=== PATIENT | female | born 1975 | race Caucasian/White ===

== ENCOUNTER 2017-01-12 19:18 | Emergency (ER) | payer OTHER ==
[~2017-01-12] VITALS: Ht 165.1 cm; Wt 112.5 kg
[2017-01-12 19:22] VITALS: TEMP 36.5; Ht 165.1 cm; Wt 112.5 kg
[2017-01-12] MEDS ORDERED: PRT/20 PO (19:49)
[2017-01-12] MEDS ORDERED: CEPHALEXIN 500MG HOME PACK 1 EA BTL PO ONE (20:00)
[2017-01-12] MEDS ORDERED: NORCO 5/325MG HOME PACK PO ONE (20:00)
[2017-01-12] MEDS ORDERED: CEPH500C PO (20:04)
--- NOTE | 2017-01-12 20:05 | EMERGENCY ROOM VISIT NOTE ---
History First contact with patient: 19:32 Chief Complaint: BITE Stated Complaint: LF ARM ITCHES/BURN W/BLISTERS History of Present Illness The patient is a 41 year old female who presents to the Emergency Room with complaints of a spider bite to her left arm. The patient states that a brown spider bit her in the left arm yesterday. She states that the area is very itchy and painful. She reports swelling and redness. She rates her discomfort a 9/10. She denies any fevers/chills or difficulty moving the arm. Review of Systems A complete 10 point review of systems was reviewed with the patient with pertinent positives and negatives as per history of present illness. All else were negative. Current/Historical Medications Scheduled Cephalexin Monohydrate (Keflex), 500 MG PO QID Pantoprazole (Protonix), 20 MG PO DAILY Physical Exam Vital Signs Date Time Temp Pulse Resp B/P (MAP) Pulse Ox O2 Delivery O2 Flow Rate FiO2 01/12/17 20:13 72 16 133/80 96 01/12/17 19:22 36.5 80 18 133/80 96 Room Air Physical Exam VITALS: Vitals are noted on the nurse's note and reviewed by myself. Vital signs stable. GENERAL: This is a 41-year-old female, in no acute distress, nondiaphoretic, well-developed well-nourished. SKIN: There are 2 small erythematous puncture wounds to the left upper arm. There is surrounding erythema and warmth with a diameter of approximately 4 cm. There is no fluctuance. MUSCULOSKELETAL: Full range of motion of the left upper extremity. NEURO: Patient was alert and oriented to person place and time. Normal sensation to light and sharp touch. Medical Decision & Procedures Medications Administered Medications (Trade) Dose Ordered Sig/Berenice Route Start Time Stop Time Status Last Admin Dose Admin Cephalexin Monohydrate (Keflex 500MG Home Pack) 1 homepack NOW ONCE PO 01/12/17 20:00 01/12/17 20:01 DC 01/12/17 20:13 1 HOMEPACK Acetaminophen/ Hydrocodone Bitart (Revillo 5/325mg Home Pack) 1 homepack UD ONCE PO 01/12/17 20:00 01/12/17 20:01 DC 01/12/17 20:13 1 HOMEPACK Medical Decision Differential diagnosis includes cellulitis, abscess, insect bite, among others. The patient was evaluated as above. She appears to have a small insect bite with a mild surrounding cellulitis. She will be placed on Keflex. She was given a home pack of Revillo for pain but should not require any further analgesics. Conservative measures were discussed including the use of ibuprofen or Tylenol for pain control and inflammation. The patient verbalized understanding of my assessment and treatment plan and was discharged home in good condition. Medication Reconcilliation Current Medication List: was personally reviewed by me Blood Pressure Screening Patient's blood pressure: Elevated blood pressure Blood pressure disposition: Elevated BP felt to be situational Impression Primary Impression: Cellulitis of arm, left Departure Information Dispostion Home / Self-Care Condition GOOD Prescriptions Cephalexin Monohydrate (Keflex) 500 Mg Cap 500 MG PO QID for 7 Days, #28 CAP Prov: Corazon Abernathy ., CLEMENT 01/12/17 Referrals No Doctor, Assigned (PCP) Patient Instructions My [facility] Additional Instructions You were prescribed Keflex to be taken 4 times daily for a total of 7 days. This is an antibiotic. All antibiotics have the potential to cause diarrhea. Stop this medication and contact a medical provider if you were to develop any significant adverse side effects including: wheezing, shortness of breath, passing out, vomiting, or a diffuse rash. Always take antibiotics as directed and COMPLETE the ENTIRE course regardless of the improvement of your symptoms. For pain control, you can use the following [id number] medicines (if >12 yo): - Regular strength (325mg/tab) Tylenol (acetaminophen) 2 tabs every 4-6 hours as needed. Do not exceed 12 tablets in a 24 hour period. Avoid taking more than 4 grams (4000 mg) of Tylenol per day. This includes any other sources of acetaminophen you may take on a regular basis. - Regular strength (200 mg/tab) Advil (ibuprofen) 1-2 tabs every 4-6 hours as needed. Do not exceed a dose of 3200 mg per day. Follow-up with your primary care provider this week for a recheck. Return to the emergency department with any significantly worsening redness, swelling, fevers or any other new/concerning symptoms.
[2017-01-12 20:13] VITALS: BP 133/80; PULSE 72; O2SAT 96
== END 2017-01-12 20:15 | disposition home or self-care (01) ==
LOC: C.EDB 19:19 → C.EDD 20:15
DX: L03.114 Cellulitis of left upper limb (principal); W57.XXXA Bitten or stung by nonvenomous insect and other nonvenomous arthropods, initial encounter